=== PATIENT | male | born 1940 | race Caucasian/White ===

== ENCOUNTER → 2016-12-25 | Outpatient (CLI) | payer MEDICARE | END | disposition home or self-care (01) | LOC: RAD.S 09:02 → PTH.S 09:30 → RAD.S 10:00 | DX: C25.0 Malignant neoplasm of head of pancreas (principal); I10 Essential (primary) hypertension ==

== ENCOUNTER → 2017-02-18 | Outpatient (CLI) | payer MEDICARE | END | disposition home or self-care (01) | LOC: RAD.S 14:16 | DX: I87.1 Compression of vein (principal); C25.0 Malignant neoplasm of head of pancreas; I10 Essential (primary) hypertension ==